=== PATIENT | male | born 1980 | race Caucasian/White ===

== ENCOUNTER 2021-06-01 00:05 | Day surgery (SDC) | payer BC, SELFPAY ==
[2021-05-25 10:21] VITALS: BMI 29.0
--- NOTE | 2021-05-31 08:26 | PM.HPGS ---
History of Present Illness History of Present Illness Consent: Risks, benefits, and alternatives have been discussed and questions answered. Patient agrees to proceed with procedure. Chief complaint: GERD Narrative: Don Rodriguez is a 41 year old male who has chronic reflux symptoms. He would have a scratchy sore throat and at times can feel or hear tiny gurgles like air bubbles in his throat. Taking Nexium has helped considerably. Also he would have nocturnal symptoms for which reason he rates the head of his bed. He denies dysphagia or weight loss He is currently taking Nexium , [id number] 20 mg per day. Review of Systems Review of Systems: All systems reviewed & are unremarkable except as noted in HPI and below PMFSH Surgical History Surgical History H/O arthroscopic knee surgery Family History Family History Father Hypertension Family history of elevated blood lipids Family history of malignant neoplasm of brain, Onset Age: 56 Social History Social History Smoking status: Never smoker Alcohol intake: current Drinks per week: 2 Substance use: never Substance use type: does not use Living arrangements: with family Spiritual care concerns: No Meds Home Medications and Allergies Home Medications Medication Instructions Recorded Confirmed Type esomeprazole magnesium [Nexium] 20 mg PO DAILY 05/25/21 05/25/21 History Allergies Allergy/AdvReac Type Severity Reaction Status Date / Time Penicillins Allergy Severe Anaphylactic Verified 06/01/21 07:47 Shock cephalexin Allergy Intermediate Rash Verified 06/01/21 07:47 Sulfa (Sulfonamide Allergy Intermediate Rash Verified 06/01/21 07:47 Antibiotics) Exam Const: General: alert Orientation/consciousness: patient oriented x3 Resp: Auscultation: clear to auscultation bilaterally Cardio: Rhythm: regular rhythm GI: GI Palp: Yes Soft to palpation and No Tenderness to palpation present (GI) Neuro: General: patient oriented x3 Assessment and Plan Assessment and plan (1) GERD (gastroesophageal reflux disease): Code(s): K21.9 - Gastro-esophageal reflux disease without esophagitis Status: Acute Assessment and Plan: EGD with possible biopsy or dilatation or cautery.
[2021-06-01 07:49] VITALS: BMI 28.5
--- NOTE | 2021-06-01 07:51 | WPDANESEPPF ---
Anes - Initial Pre Proc Eval Procedure: Operation Date: 06/01/21 08:30 Proposed Procedures p Esophagogastroduodenoscopy - Jus German MD Date/Time: 06/01/21 07:51 Surgeon: Jus German MD Pre Op Diagnosis: GERD Patient Data Age: 41 Gender: M Height: 1.83 m Weight: 95.3 kg Allergies Allergy/AdvReac Type Severity Reaction Status Date / Time Penicillins Allergy Severe Anaphylactic Verified 06/01/21 07:47 Shock cephalexin Allergy Intermediate Rash Verified 06/01/21 07:47 Sulfa (Sulfonamide Allergy Intermediate Rash Verified 06/01/21 07:47 Antibiotics) Home Medications Medication Instructions Recorded Confirmed Type esomeprazole magnesium [Nexium] 20 mg PO DAILY 05/25/21 05/25/21 History Patient hx anesthesia problems: none Family hx anesthesia problems: none [facility] Surgical History Surgical History (Updated 06/01/21 @ 07:51 by King Choi MD) H/O arthroscopic knee surgery Family History Family History Father Hypertension Family history of elevated blood lipids Family history of malignant neoplasm of brain, Onset Age: 56 Social History Social History Smoking status: Never smoker Alcohol intake: current Drinks per week: 2 Substance use: never Substance use type: does not use Living arrangements: with family Spiritual care concerns: No Anes - Eval Final PreProcedure Day of Procedure 06/01/21 07:51 Patient weight: normal Heart: regular rate and rhythm Lungs: clear to auscultation Airway: Mallampati scale class 1 Neurological: alert and oriented Last oral intake: >/= 8 hours ASA classification: I Emergent: no Anesthetic plan: proceed Anesthesia type and monitoring: general GIVS and standard monitoring Informed Consent: The patient's anesthetic plan and its attendant risks and benefits were discussed with the patient/family/POA. Questions were solicited and answers provided to the satisfaction of the patient/family/POA.
[2021-06-01] MEDS: LACTATED RINGERS 1,000 ML 150 ML IV CONT (08:03)
[2021-06-01 08:40] VITALS: BP 115/81; PULSE 53; RESP 17; O2SAT 96
[2021-06-01 08:50] VITALS: BP 112/80; PULSE 44; RESP 15; O2SAT 97
[2021-06-01 09:00] VITALS: BP 118/77; PULSE 56; RESP 15; O2SAT 97
== END 2021-06-01 09:10 | disposition home or self-care (01) ==
PROVIDERS: PCP Physician Assistant; Visit Provider Internal Medicine Gastroenterology
PROC: 0DJ08ZZ Inspection of Upper Intestinal Tract, Via Natural or Artificial Opening Endoscopic (ICD-10-PCS; CPT 43235; principal; 2021-06-01 08:30)
DX: K21.9 Gastro-esophageal reflux disease without esophagitis (principal)
CPT/HCPCS: 43239; 87081; J2704; J7120